=== PATIENT | male | born 1960 | race Two or more races ===

== ENCOUNTER 2017-02-23 17:12 | Inpatient (IN) | payer MEDICARE, MEDICAID ==
[2017-02-23 17:29] VITALS: BP 166/64
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
[2017-02-23 19:16] LABS: HEMOGLOBIN 11.6 gm/dL (13.2-17.3); RED CELL DISTRIBUTION WIDTH 19.1 % (11.5-20.0)
[2017-02-23 19:19] LABS: % BASOPHILS 0.5 % (0.0-2.0); % EOSINOPHILS 2.9 % (0.0-5.0); % LYMPHOCYTES 28.2 % (20.0-50.0); % MONOCYTES 9.3 % (2.0-10.0); % NEUTROPHILS 59.1 % (40.0-80.0); HEMATOCRIT 34.9 % (39.0-49.0); MEAN CELL VOLUME 83.7 fl (80-99); MEAN CORPUSCULAR HEMOGLOBIN 27.8 pg (26.0-30.0); MEAN CORPUSCULAR HGB CONC 33.3 pg (28.0-36.0); MEAN PLATELET VOLUME 9.1 fl; NEUTROPHILE ABSOLUTE 4.2 Th/cmm (1.8-8.0); PLATELET COUNT 146 Th/cmm (150-400); RED BLOOD COUNT 4.17 Mil/cmm (4.30-5.70); WHITE BLOOD COUNT 7.1 Th/cmm (4.8-10.8)
[2017-02-23 19:26] LABS: ALB/GLOB RATIO 1.2 (1.0-1.8); ALKALINE PHOSPHATASE 203 U/L (34-104); ANION GAP 10.6 (7.0-16.0); BILIRUBIN,TOTAL 0.2 mg/dL (0.3-1.0); BUN - UREA NITROGEN 24 mg/dL (7-25); CALCIUM SERUM 8.8 mg/dL (8.6-10.3); CARBON DIOXIDE 19.6 mEq/L (21.0-31.0); CHLORIDE 108 mEq/L (98-107); CREATININE - SERUM 0.8 mg/dL (0.7-1.3); GLUCOSE 92 mg/dL (70-105); POTASSIUM SERUM 4.2 mEq/L (3.5-5.1); SGOT 41 U/L (13-39); SGPT/ALT 40 U/L (7-52); SODIUM SERUM 134 mEq/L (136-145)
[2017-02-23 19:34] LABS: PHENYTOIN 13.9 ug/ml (10.0-20.0)
[2017-02-23 20:12] LABS: URINE BILIRUBIN NEGATIVE (NEGATIVE); URINE BLOOD NEGATIVE (NEGATIVE); URINE COLOR PALE YELLOW; URINE GLUCOSE (UA) NEGATIVE (NEGATIVE); URINE KETONE NEGATIVE (NEGATIVE); URINE PROTEIN NEGATIVE (NEGATIVE); URINE UROBILINOGEN 0.2 E.U./dL (0.2 - 1.0)
[2017-02-23 20:13] LABS: URINE BACTERIA OCCASIONAL /hpf (NONE SEEN); URINE EPITHELIAL CELLS OCCASIONAL /lpf (FEW); URINE RBC NONE SEEN /hpf (0-5); URINE WBC 0-2 /hpf (0-5)
[2017-02-23] MEDS ORDERED: Albuterol Nebulizer 2.5mg/3mL IH PRN (20:42)
[2017-02-23] MEDS: INSULIN ASPART SLIDING SCALE 100 UNITS/ML UNIT SUBQ SCH (23:00)
[2017-02-23] MEDS: Benztropine 1 MG TAB PO SCH (23:25)
[2017-02-23] MEDS: Ferrous Sulfate 325 MG TAB PO SCH (23:26)
[2017-02-23] MEDS: Levofloxacin 500mg/100mL 500 MG/100 ML BAG IV SCH (23:49)
[2017-02-24] MEDS: Pantoprazole 40 mg EC Tab PO SCH (06:47)
[2017-02-24] MEDS: Ferrous Sulfate 325 MG TAB PO SCH ×3 (08:25→22:22)
[2017-02-24] MEDS: INSULIN ASPART SLIDING SCALE 100 UNITS/ML UNIT SUBQ SCH ×4 (08:31→23:47)
[2017-02-24] MEDS ORDERED: Pneumococcal Vaccine 0.5 mL Vial IM ONE (09:00)
--- NOTE | 2017-02-24 09:45 | Diagnostic Imaging Report ---
Bilateral lower extremity DVT study HISTORY: Pain rule out DVT COMPARISON: None Technique: Longitudinal and transverse sonographic images of the bilateral lower extremity veins were obtained with doppler analysis. FINDINGS: There is normal compressibility, augmentation and phasicity of the bilateral common femoral, superficial femoral, popliteal, and posterior tibial veins. No thrombus is visualized. Bilateral lower extremity edema is noted. IMPRESSION: No evidence of thrombus within the bilateral lower extremity veins.
--- NOTE | 2017-02-24 13:40 | Admit Criteria Form ---
Admit Criteria Forms - Admit Criteria Diagnosis: PSYCHIATRIC DISORDERS Clinical Indications for Inpatient Care (Place 'X' for any and all applicable criteria): Ongoing inpatient care may be needed for ANY ONE of the following(1)(2)(3)(4)(6) (7)(8): [X ]I. Danger to self or others not manageable at lower level of care. [ ]II. Grave disability (eg, inability to perform self care necessary at lower level of care) [ ]III. Agitation or inappropriate behavior interfering with care for primary condition (eg, attempting to discontinue lines or drains prematurely, unable to cooperate with respiratory care) [ ]IV. Severe disability or disorder indicated by ALL of the following: [ ]a) Severe behavioral health disorder-related symptoms or condition indicated by ANY ONE of the following: [ ]i) Severe problem with cognition, memory, judgment, or impulse control [ ]ii) Severe clinical manifestations (eg, hallucinations, delusions, other acute psychotic symptoms, victor hugo, extreme agitation or anxiety) [ ]b) Patient management at lower level of care is not feasible until acute intervention or modification is initiated. Extended stay beyond goal length of stay for the primary condition may be indicated when ANY ONE of the following is present: (1)(2)(3)(4): [ ]a) Patient is a danger to self or others and not manageable at lower level of care. [ ]b) Behavior crisis management, including physical or chemical restraints, is required and is not available at a lower level of care. [ ]c) Behavioral symptoms (e.g., agitation, somnolence, inappropriate behavior) are present, and are not manageable at a lower level of care. [ ]d) Patient cannot understand follow-up treatment and crisis plan. [ ]e) Provider and supports are not sufficiently available at lower level of care. [ ]f) Patient cannot participate (e.g., verify absence of plan for harm) and is in needed of monitoring. The original [facility] [employer] content created by [facility] [employer] has been revised. The portions of the content which have been revised are identified through the use of italic text or in bold, and [employer] [facility] [employer] has neither reviewed nor approved the modified material. All other unmodified content is copyright [facility] [employer]. Please see references footnoted in the original [facility] edition 2016 Admit Criteria Met?: Yes
--- NOTE | 2017-02-24 21:39 | History & Physical ---
ADMIT DATE: 02/24/2017 CHIEF COMPLAINT: Increasing agitation and left leg swelling. HISTORY OF PRESENT ILLNESS: This is a 56 years old male with history of obesity, chronic leg swelling, mental illness, was admitted from nursing facility secondary to above with leg swelling and increasing agitation. The patient was apparently agitated and had to be placed on 5150. The patient had admitted to medical floor for further management. PAST MEDICAL HISTORY: As mentioned in history of present illness. PAST SURGICAL HISTORY: Denies surgery in the past. ALLERGIES: PENICILLIN. MEDICATION: ____, Lotensin, Lasix, Neurontin, Flexeril, Cogentin, Mobic, phenobarbital, Lamictal. FAMILY HISTORY: Noncontributory. SOCIAL HISTORY: The patient smokes and drinks. Used to be a cnc machinist, , the patient is unable to tell me how many kids. REVIEW OF SYSTEMS: GENERAL: Complains not feeling well. HEENT: No blurred vision. NECK: No neck pain. LUNGS: Negative for COPD or asthma. HEART: The patient had hypertension. Denies coronary artery disease. ABDOMEN: No nausea, vomiting, or pain. GENITOURINARY: The patient denies increased frequency or dysuria. NEUROLOGIC: No headache, seizure, or syncope. PSYCHIATRIC: As stated above. EXTREMITIES: ____ leg pain and swelling. PHYSICAL EXAMINATION: VITAL SIGNS: Blood pressure 150/75, respiration 18, pulse 98, temperature 98.____. GENERAL: Elderly male who appears his stated age, mildly obese. NECK: Supple. No mass. LUNGS: Equal breath sounds, few rhonchi. CARDIOVASCULAR: Heart, regular rate and rhythm without appreciable murmurs. ABDOMEN: Soft, nontender. EXTREMITIES: Positive excoriations. NEUROLOGIC: Limited. EXTREMITIES: Bilateral lower extremity has redness and pain to palpation and 2+ edema. LABORATORY DATA: WBC 7.9, hemoglobin ____, platelets 146. Sodium 134, potassium 4.2, BUN 24, creatinine 0.8, blood sugar was 104, ____. ASSESSMENT AND PLAN: Bilateral lower extremity cellulitis, seizure disorder, anemia, diabetes, obesity, hyponatremia, lower extremity edema, schizoaffective disorder, on 5150, hypercholesterolemia, hypertension. We will continue the patient on IV antibiotic, continue the patient on diuretics. We will perform both lower extremity arterial ultrasound as well as echocardiogram. We will refer the patient to Psychiatry. We will monitor the patient closely. JOB# [id number]
[2017-02-24] MEDS: Benztropine 1 MG TAB PO SCH (22:22)
[2017-02-25] MEDS: Levofloxacin 500mg/100mL 500 MG/100 ML BAG IV SCH (01:34)
[2017-02-25] MEDS: INSULIN ASPART SLIDING SCALE 100 UNITS/ML UNIT SUBQ SCH ×4 (07:02→21:14)
[2017-02-25] MEDS: Pantoprazole 40 mg EC Tab PO SCH (07:02)
[2017-02-25 07:13] LABS: HEMOGLOBIN 12.4 gm/dL (13.2-17.3)
[2017-02-25 07:31] LABS: % BASOPHILS 0.8 % (0.0-2.0); % EOSINOPHILS 4.7 % (0.0-5.0); % LYMPHOCYTES 33.8 % (20.0-50.0); % MONOCYTES 10.6 % (2.0-10.0); % NEUTROPHILS 50.1 % (40.0-80.0); HEMATOCRIT 36.9 % (39.0-49.0); MEAN CELL VOLUME 83.5 fl (80-99); MEAN CORPUSCULAR HGB CONC 33.6 pg (28.0-36.0); MEAN PLATELET VOLUME 8.8 fl; NEUTROPHILE ABSOLUTE 3.1 Th/cmm (1.8-8.0); PLATELET COUNT 163 Th/cmm (150-400); RED BLOOD COUNT 4.42 Mil/cmm (4.30-5.70)
[2017-02-25 07:38] LABS: ANION GAP 8.5 (7.0-16.0); BUN - UREA NITROGEN 22 mg/dL (7-25); BUN/CREATININE RATIO 27.5; CALCIUM SERUM 9.3 mg/dL (8.6-10.3); CARBON DIOXIDE 26.4 mEq/L (21.0-31.0); CHLORIDE 107 mEq/L (98-107); CREATININE - SERUM 0.8 mg/dL (0.7-1.3); GLUCOSE 95 mg/dL (70-105); POTASSIUM SERUM 3.9 mEq/L (3.5-5.1); SODIUM SERUM 138 mEq/L (136-145)
[2017-02-25] MEDS ORDERED: Potassium Chloride 10 mEq ER Tab PO SCH (09:00)
[2017-02-25] MEDS: Ferrous Sulfate 325 MG TAB PO SCH ×3 (10:00→21:55)
--- NOTE | 2017-02-25 10:17 | Diagnostic Imaging Report ---
Bilateral lower extremity arterial Doppler study HISTORY: Pain rule out stenosis COMPARISON: None Technique: Longitudinal and transverse sonographic images of the bilateral lower extremity arteries were obtained with doppler analysis. FINDINGS: Exam of the right side demonstrates intimal thickening and mild atherosclerotic vascular disease. There is biphasic flow seen within the right tibialis anterior and tibialis posterior arteries. Exam of the left side demonstrates intimal thickening and mild to moderate atherosclerotic vascular disease. There is biphasic flow within the left popliteal, tibialis anterior, and tibials posterior arteries. There is monophasic flow within the left dorsalis pedis artery. Right ankle brachial index is 1.2 Left ankle-brachial index is 1.1 IMPRESSION: Mild to moderate atherosclerotic vascular disease greatest along the distal left lower extremity. No sonographic evidence of occlusion.
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
[2017-02-25] MEDS: Benztropine 1 MG TAB PO SCH (21:54)
[2017-02-26] MEDS ORDERED: Furosemide 40 mg/4mL UDC PO SCH (09:00)
[2017-02-26] MEDS ORDERED: Lactulose 10 Gm/15 mL 30mL UDC PO SCH (09:00)
--- NOTE | 2017-02-27 14:11 | Cardiology ---
02/25/[address] Moore. M-MODE ECHOCARDIOGRAM: Mitral valve, anterior leaflets of mitral valve shows normal excursion, EF velocity. Posterior leaflet of the mitral valve shows normal excursion. Left ventricular posterior wall shows increased thickness, normal excursion. Interventricular septum shows increased thickness, normal excursion, hypertrophy of the left ventricle, ejection fraction 60%. Left atrium normal. Aortic root shows normal dimension, normal excursion of aortic leaflets. CONCLUSION: Hypertrophy of the left ventricle, ejection fraction 60%. 2D ECHO: Long axis view showed normal sized left ventricle with hypertrophy of the left ventricle. Left atrium normal. Aortic root shows normal dimension, normal excursion of aortic leaflets. Short axis view of mitral valve normal. Short axis view of aortic valve normal. Apical four chamber view showed normal sized left ventricle, left atrium, right ventricle, right atrium, tricuspid and mitral valve. Ejection fraction 60%. CONCLUSION: Hypertrophy of the left ventricle. Doppler study shows prominent A wave consistent with poor compliance of left ventricle. Trace tricuspid regurgitation. CONCLUSION: Hypertrophy of the left ventricle, trace tricuspid regurgitation, ejection fraction 60%. JOB# [id number]
--- NOTE | 2017-02-28 02:33 | Discharge Summary ---
DATE OF DISCHARGE: 02/26/2017 CHIEF COMPLAINT: Left leg swelling. FINAL DIAGNOSES: Bilateral lower extremity cellulitis, seizure disorder, anemia, diabetes, obesity, hyponatremia, lower extremity edema, schizoaffective disorder, 5150, hypercholesterolemia and hypertension. HISTORY: This is a 56-year-old male with history of obesity, chronic leg swelling, mental illness, who was admitted from nursing facility secondary to leg swelling, increasing agitation. The patient was on 5150. PHYSICAL EXAMINATION: VITAL SIGNS: Blood pressure 130/____, respiration 18, pulse 93 and temperature 97.9. GENERAL: Elderly male, appears stated age. NECK: Supple. No mass. LUNGS: Equal breath sounds, few rhonchi. HEART: Regular rate and rhythm without appreciable murmurs. ABDOMEN: Soft and nontender. EXTREMITIES: Positive excoriations. NEUROLOGIC: Limited, moving 4 extremities. HOSPITAL COURSE: The patient admitted to medical floor. The patient was started on IV antibiotic. Arterial ultrasound showed moderate ____ vascular disease, no evidence of occlusion. The patient medically is cleared for transfer to [facility]. CONDITION ON DISCHARGE: Fair. DISCHARGE INSTRUCTIONS: The patient to continue current medical regimen. The patient will be admitted to [facility]. JOB# [id number]
[2017-02-28 05:14] LABS: FOLIC ACID 16.7 ng/mL (>3.0)
== END 2017-02-25 23:35 | DRG 603 ==
LOC: ER 17:12 → MSI 21:15 → TELE 02-25 10:31 → MSI 02-25 11:22
PROVIDERS: ADMIT Internal Medicine; ATTEND Internal Medicine
DX: L03.116 Cellulitis of left lower limb (principal); E87.1 Hypo-osmolality and hyponatremia; I10 Essential (primary) hypertension; E11.9 Type 2 diabetes mellitus without complications; E66.9 Obesity, unspecified; D64.9 Anemia, unspecified; F31.9 Bipolar disorder, unspecified; L03.115 Cellulitis of right lower limb; G40.909 Epilepsy, unspecified, not intractable, without status epilepticus; F25.9 Schizoaffective disorder, unspecified; E78.00 Pure hypercholesterolemia, unspecified; Z88.0 Allergy status to penicillin; Z87.891 Personal history of nicotine dependence; Z68.32 Body mass index [BMI] 32.0-32.9, adult
CPT/HCPCS: 36415-UA; 80048-TC; 80053-TC; 80184-TC; 80185-TC; 81001-TC; 82140-TC; 82607-90; 82746-90; 82948-90; 83880-TC; 84443-TC; 85025-TC; 86592-TC; 93005; 93925-TC; 93970-TC-50; 94760; J1644; J1815; J1940; J1956; Z7610